=== PATIENT | male | born 1995 | race Caucasian/White ===

== ENCOUNTER → 2023-10-04 07:28 | Outpatient (REF) | payer OTHER, SELFPAY | LOC: RAD 07:28 | PROVIDERS: ATTENDING PHYSICIAN Nurse Practitioner Adult Health | DX: I10 Essential (primary) hypertension (principal) | CPT/HCPCS: 93975 ==

== ENCOUNTER → 2025-03-08 13:42 | Outpatient (REF) | payer OTHER, SELFPAY | LOC: RAD 13:42 | PROVIDERS: ATTENDING PHYSICIAN Specialist; FAMILY PHYSICIAN Nurse Practitioner Adult Health | DX: I1A.0 Resistant hypertension (principal) | CPT/HCPCS: 74175; Q9967 ==